=== PATIENT | female | born 1960 | race American Indian/Alaskan Native ===

== ENCOUNTER 2019-02-01 23:58 | Emergency (ER) | payer OTHER ==
[2019-02-02 00:10] VITALS: BP 133/91
--- NOTE | 2019-02-02 00:36 | XRay Report ---
PROCEDURE: XR CHEST 1V AP TECHNIQUE: Chest radiograph single view. HISTORY: Chest Pain COMPARISONS: None . FINDINGS: Heart: Normal. Mediastinum/Vessels: Normal. Lungs/Pleural space: Normal. Bony thorax: No acute osseous abnormality. Life support devices: None. IMPRESSION: No acute cardiopulmonary abnormality. This document is electronically signed by Karl Monique MD., February 02 2019 12:34:05 AM ET
[2019-02-02 01:21] LABS: Basophils # (Auto) 0.1 K/mm3 (0.0-0.1); Eosinophils # (Auto) 0.1 K/mm3 (0.0-0.4); Hematocrit 40.8 % (30.3-42.9); Hemoglobin 14.5 gm/dl (10.1-14.3); Lymphocytes # (Auto) 1.5 K/mm3 (1.2-5.4); Lymphocytes % (Auto) 25.1 % (13.4-35.0); Mean Corpuscular HGB Conc 36 % (30-34); Mean Corpuscular Volume 98 fl (79-97); Platelet Count 193 K/mm3 (140-440); Red Blood Count 4.16 M/mm3 (3.65-5.03); Red Cell Distribution Width 13.1 % (13.2-15.2)
[2019-02-02 02:05] LABS: BUN/Creatinine Ratio 15; Blood Urea Nitrogen 12 mg/dL (7-17); Calcium 8.8 mg/dL (8.4-10.2); Hemolysis Index 6
== END 2019-02-02 07:00 | disposition left against medical advice (07) ==
LOC: ED 23:58
DX: R07.89 Other chest pain (principal); Z53.21 Procedure and treatment not carried out due to patient leaving prior to being seen by health care provider
CPT/HCPCS: 36415; 71045; 80048; 84484; 85025; 93005; 93010

== ENCOUNTER 2019-05-02 19:57 | Emergency (ER) | payer OTHER ==
[2019-05-02 20:26] LABS: Basophils # (Auto) 0.1 K/mm3 (0.0-0.1); Basophils % (Auto) 1.7 % (0.0-1.8); Eosinophils # (Auto) 0.1 K/mm3 (0.0-0.4); Eosinophils % (Auto) 2.1 % (0.0-4.3); Hematocrit 33.5 % (30.3-42.9); Hemoglobin 11.9 gm/dl (10.1-14.3); Mean Corpuscular HGB Conc 35 % (30-34); Mean Corpuscular Volume 97 fl (79-97); Monocytes # (Auto) 0.6 K/mm3 (0.0-0.8); Platelet Count 179 K/mm3 (140-440); Red Blood Count 3.45 M/mm3 (3.65-5.03); Red Cell Distribution Width 14.2 % (13.2-15.2)
[2019-05-02 20:44] LABS: Alanine Aminotransferase 55 units/L (7-56); Albumin 3.4 g/dL (3.9-5); BUN/Creatinine Ratio 14; Blood Urea Nitrogen 11 mg/dL (7-17); Calcium 8.4 mg/dL (8.4-10.2); Hemolysis Index 61
[2019-05-02] MEDS ORDERED: ZOFRAN IV ONE (22:19)
[2019-05-02] MEDS ORDERED: NACL 0.9% 1000 ML 1,000 ML IV ONE (22:19)
[2019-05-02] MEDS ORDERED: PEPCID IV ONE (22:19)
--- NOTE | 2019-05-02 23:19 | Emergency Department Report ---
ED N/V/D HPI - General Chief complaint: Nausea/Vomiting/Diarrhea Stated complaint: LOSS OF APPETITE/EMESIS Time Seen by Provider: 05/02/19 22:00 Source: patient Mode of arrival: Ambulatory Limitations: No Limitations - History of Present Illness Initial comments: Patient is a 59-year-old -[place]ian female with a history of chronic anorexia with intermittent nausea and vomiting presents to the ED with acute exacerbation of her chronic nausea and vomiting episodes for the last 12 hours. Patient states that she has had 2 episodes of nausea and vomiting but has not eaten anything because of anorexia. Patient denies abdominal pain, chest pain, shortness of breath, dizziness, lightheadedness, cough, headache, dysuria, urinary frequency and urgency, hematuria, hematochezia, sore throat, fever and chills. MD complaint: nausea, vomiting -: Sudden, hour(s) (12) Description of Vomiting: watery, bilious Description of Diarrhea: other (None) Associated Abdominal Pain: No Location: diffuse Radiation: none Severity: moderate Pain Scale: 3 Quality: aching, dull Consistency: intermittent Improves with: none Worsens with: none Associated Symptoms: denies other symptoms, loss of appetite, malaise, nausea/vomiting. denies: myalgias, chest pain, cough, diaphoresis, fever/chills, headaches, rash, dysuria, shortness of breath, syncope, weakness - Related Data Previous Rx's Medication Instructions Recorded Last Taken Type HYDROcodone/APAP 5-325 [[place] 1 each PO Q6HR PRN #20 tablet 05/17/14 Unknown Rx 5/325] Ibuprofen [Motrin] 800 mg PO TID #60 tablet 05/17/14 Unknown Rx methylPREDNISolone [Medrol Dose 4 mg PO DAILY 6 Days tab 05/17/14 Unknown Rx Anthony] Diclofenac Dr [Onelia Quinn] 75 mg PO Q12H #60 tablet 06/24/15 Unknown Rx HYDROcodone/APAP 7.5-325 [[place] 1 each PO Q8HR PRN #30 tablet 06/24/15 Unknown Rx 7.5/325] Ondansetron [Zofran Odt] 4 mg PO Q6HR PRN #20 tab.rapdis 05/02/19 Unknown Rx Ranitidine HCl [Zantac] 150 mg PO Q12H #30 tablet 05/02/19 Unknown Rx Allergies Allergy/AdvReac Type Severity Reaction Status Date / Time No Known Allergies Allergy Verified 05/02/19 20:01 ED Review of Systems ROS: Stated complaint: LOSS OF APPETITE/EMESIS Other details as noted in HPI Constitutional: denies: chills, fever Eyes: denies: eye pain, eye discharge, vision change ENT: denies: ear pain, throat pain Respiratory: denies: cough, shortness of breath, wheezing Cardiovascular: denies: chest pain, palpitations Endocrine: no symptoms reported Gastrointestinal: nausea, vomiting. denies: abdominal pain, diarrhea Genitourinary: denies: urgency, dysuria, discharge Musculoskeletal: denies: back pain, joint swelling, arthralgia Skin: denies: rash, lesions Neurological: denies: headache, weakness, paresthesias Psychiatric: denies: anxiety, depression Hematological/Lymphatic: denies: easy bleeding, easy bruising ED Past Medical Hx - Past Medical History Hx Heart Attack/AMI: Yes Hx Arthritis: Yes (osteo, chronic back pain) Hx Psychiatric Treatment: Yes (depression) Additional medical history: [place] 2008, [place] 2017 - Surgical History Additional Surgical History: Hysto, tumor removal off left shoulder. tosillectomy - Social History Smoking Status: Current Every Day Smoker Substance Use Type: Alcohol, Marijuana - Medications Home Medications: Home Medications Medication Instructions Recorded Confirmed Last Taken Type HYDROcodone/APAP 5-325 [[place] 1 each PO Q6HR PRN #20 tablet 05/17/14 Unknown Rx 5/325] Ibuprofen [Motrin] 800 mg PO TID #60 tablet 05/17/14 Unknown Rx methylPREDNISolone [Medrol Dose 4 mg PO DAILY 6 Days tab 05/17/14 Unknown Rx Anthony] Diclofenac Dr [Oneila Dr] 75 mg PO Q12H #60 tablet 06/24/15 Unknown Rx HYDROcodone/APAP 7.5-325 [[place] 1 each PO Q8HR PRN #30 tablet 06/24/15 Unknown Rx 7.5/325] Ondansetron [Zofran Odt] 4 mg PO Q6HR PRN #20 tab.rapdis 05/02/19 Unknown Rx Ranitidine HCl [Zantac] 150 mg PO Q12H #30 tablet 05/02/19 Unknown Rx ED Physical Exam - General Limitations: No Limitations General appearance: alert, in no apparent distress - Head Head exam: Present: atraumatic, normocephalic, normal inspection - Eye Eye exam: Present: normal appearance, PERRL, EOMI. Absent: scleral icterus, conjunctival injection, nystagmus Pupils: Present: normal accommodation - ENT ENT exam: Present: normal exam, normal orophraynx, mucous membranes moist, TM's normal bilaterally, normal external ear exam - Neck Neck exam: Present: normal inspection, full ROM. Absent: tenderness, lymphadenopathy - Respiratory Respiratory exam: Present: normal lung sounds bilaterally. Absent: respiratory distress, wheezes, chest wall tenderness, accessory muscle use, prolonged expiratory - Cardiovascular Cardiovascular Exam: Present: normal rhythm, tachycardia. Absent: systolic murmur, diastolic murmur, rubs, gallop - GI/Abdominal GI/Abdominal exam: Present: soft, normal bowel sounds. Absent: tenderness, guarding, rebound, hyperactive bowel sounds, hypoactive bowel sounds, organomegaly - Rectal Rectal exam: Present: deferred - Extremities Exam Extremities exam: Present: normal inspection, full ROM, normal capillary refill - Back Exam Back exam: Present: normal inspection, full ROM. Absent: tenderness, CVA tenderness (R), CVA tenderness (L), muscle spasm, paraspinal tenderness - Neurological Exam Neurological exam: Present: alert, oriented X3, CN II-XII intact, normal gait, reflexes normal - Psychiatric Psychiatric exam: Present: normal affect, normal mood, anxious - Skin Skin exam: Present: warm, dry, intact, normal color. Absent: rash ED Course Vital Signs 05/02/19 20:06 Temperature 98.2 F Pulse Rate 107 H Respiratory 18 Rate Blood Pressure 132/80 O2 Sat by Pulse 98 Oximetry - Reevaluation(s) Reevaluation #1: 05/02/19 23:18 The patient is alert and oriented 3, tachycardic in triage but in no acute distress. Lab test results are reviewed and are unremarkable except for a slight elevation of AST levels. Patient was treated for nausea and vomiting in the ED but declined normal saline 1 L IV bolus. Patient requested to be discharged home on antiemetics and was advised to follow-up with her primary care physician in 3-5 days for reevaluation or return to the ED immediately if symptoms get worse. ED Medical Decision Making - Lab Data Result diagrams: 05/02/19 20:13 05/02/19 20:13 - Medical Decision Making The patient is alert and oriented 3, tachycardic in triage but in no acute dist ress. Lab test results are reviewed and are unremarkable except for a slight elevation of AST levels. Patient was treated for nausea and vomiting in the ED but declined normal saline 1 L IV bolus. Patient requested to be discharged home on antiemetics and was advised to follow-up with her primary care physician in 3-5 days for reevaluation or return to the ED immediately if symptoms get worse. The tachycardia improved on reevaluation after treatment in the ED. - Differential Diagnosis Nausea and vomiting; Viral gastroenteritis; Cyclic Vomiting syndrome Critical care attestation.: If time is entered above; I have spent that time in minutes in the direct care of this critically ill patient, excluding procedure time. ED Disposition Clinical Impression: Nausea and vomiting in adult patient Disposition: - TO HOME OR SELFCARE Is pt being admited?: No Does the pt Need Aspirin: No Condition: Stable Instructions: Acute Nausea and Vomiting (ED) Additional Instructions: Take medications with food, drink plenty of fluids and follow-up with your primary care physician as advised. Return to the ED immediately if symptoms get worse. Prescriptions: Ranitidine HCl [Zantac] 150 mg PO Q12H #30 tablet Ondansetron [Zofran Odt] 4 mg PO Q6HR PRN #20 tab.rapdis PRN Reason: Nausea Referrals: [facility] [Outside] - 3-5 Days Time of Disposition: 23:21 Print Language: NICARAGUAN
[2019-05-03 00:14] VITALS: BP 161/98
== END 2019-05-03 00:14 | disposition home or self-care (01) ==
LOC: ED 19:57
DX: R11.2 Nausea with vomiting, unspecified (principal); I25.2 Old myocardial infarction; M19.90 Unspecified osteoarthritis, unspecified site; F32.9 Major depressive disorder, single episode, unspecified; F17.200 Nicotine dependence, unspecified, uncomplicated; F12.10 Cannabis abuse, uncomplicated; Z79.899 Other long term (current) drug therapy; Z90.710 Acquired absence of both cervix and uterus; Z90.89 Acquired absence of other organs
CPT/HCPCS: 36415; 80053; 83690; 85025; 99283; J2405; J7030

== ENCOUNTER 2019-08-03 00:05 | Emergency (ER) | payer SELFPAY ==
[2019-08-03] MEDS ORDERED: ASPIRIN 325 MG TAB PO ONE (00:11)
--- NOTE | 2019-08-03 00:47 | XRay Report ---
CHEST 1 VIEW 08/03/2019 12:34 AM INDICATION / CLINICAL INFORMATION: Chest Pain. Palpitations. Dizziness. COMPARISON: One view of the chest from 02/02/2019. FINDINGS: SUPPORT DEVICES: None. HEART / MEDIASTINUM: Normal cardiac size with mild aortic atherosclerosis. LUNGS / PLEURA: No significant pulmonary or pleural abnormality. No pneumothorax. ADDITIONAL FINDINGS: No significant additional findings. IMPRESSION: No acute abnormality of the chest. Signer Name: Jay King MD Signed: 08/03/2019 12:43 AM Workstation Name: [id number]
[2019-08-03 01:03] LABS: Basophils # (Auto) 0.1 K/mm3 (0.0-0.1); Basophils % (Auto) 1.7 % (0.0-1.8); Eosinophils # (Auto) 0.1 K/mm3 (0.0-0.4); Eosinophils % (Auto) 1.2 % (0.0-4.3); Hematocrit 39.4 % (30.3-42.9); Hemoglobin 13.7 gm/dl (10.1-14.3); Mean Corpuscular HGB Conc 35 % (30-34); Mean Corpuscular Volume 102 fl (79-97); Monocytes # (Auto) 0.7 K/mm3 (0.0-0.8); Monocytes % (Auto) 12.2 % (0.0-7.3); Platelet Count 172 K/mm3 (140-440); Red Blood Count 3.88 M/mm3 (3.65-5.03); Red Cell Distribution Width 13.8 % (13.2-15.2)
--- NOTE | 2019-08-03 01:11 | Emergency Department Report ---
ED Chest Pain HPI - General Chief Complaint: Chest Pain Stated Complaint: CHEST PAIN Time Seen by Provider: 08/03/19 01:01 Source: patient Mode of arrival: Ambulatory Limitations: No Limitations - History of Present Illness Initial Comments: Patient is 59 years old female with history of hypertension, noncompliant with her medication. Patient presented to the ER complaining of substernal chest pain started 3 days ago, on and off with no radiation. Patient denied any shortness of breath, fever or chills. No cough. MD Complaint: chest pain -: days(s) (2) Onset: during rest Pain Location: substernal Severity: moderate Quality: heaviness Consistency: intermittent - Related Data Previous Rx's Medication Instructions Recorded Last Taken Type HYDROcodone/APAP 5-325 [[place] 1 each PO Q6HR PRN #20 tablet 05/17/14 Unknown Rx 5/325] Ibuprofen [Motrin] 800 mg PO TID #60 tablet 05/17/14 Unknown Rx methylPREDNISolone [Medrol Dose 4 mg PO DAILY 6 Days tab 05/17/14 Unknown Rx Anthony] Diclofenac Dr [Voltaren Dr] 75 mg PO Q12H #60 tablet 06/24/15 Unknown Rx HYDROcodone/APAP 7.5-325 [[place] 1 each PO Q8HR PRN #30 tablet 06/24/15 Unknown Rx 7.5/325] Ondansetron [Zofran Odt] 4 mg PO Q6HR PRN #20 tab.rapdis 05/02/19 Unknown Rx raNITIdine HCl [Zantac] 150 mg PO Q12H #30 tablet 05/02/19 Unknown Rx Allergies Allergy/AdvReac Type Severity Reaction Status Date / Time No Known Allergies Allergy Verified 05/02/19 20:01 Heart Score - HEART Score History: Slightly suspicious EKG: Non-specific Age: 45-65 Risk factors: 1-2 risk factors Troponin: < normal limit HEART Score: 3 - Critical Actions Critical Actions: 0-3 pts:0.9-1.7%risk of adverse cardiac event.Candidate for discharge ED Review of Systems ROS: Stated complaint: CHEST PAIN Other details as noted in HPI Comment: All other systems reviewed and negative Constitutional: denies: chills, fever Respiratory: denies: cough Cardiovascular: chest pain. denies: palpitations Gastrointestinal: denies: abdominal pain, nausea, vomiting Musculoskeletal: denies: back pain Neurological: denies: headache, weakness, numbness, paresthesias, confusion, vertigo ED Past Medical Hx - Past Medical History Previous Medical History?: Yes Hx Heart Attack/AMI: Yes Hx Arthritis: Yes (osteo, chronic back pain) Hx Psychiatric Treatment: Yes (depression) Additional medical history: [place] 2008, 2017 - Surgical History Past Surgical History?: Yes Additional Surgical History: Hysto, tumor removal off left shoulder. tosillectomy. - Social History Smoking Status: Current Every Day Smoker Substance Use Type: Alcohol - Medications Home Medications: Home Medications Medication Instructions Recorded Confirmed Last Taken Type HYDROcodone/APAP 5-325 [[place] 1 each PO Q6HR PRN #20 tablet 05/17/14 Unknown Rx 5/325] Ibuprofen [Motrin] 800 mg PO TID #60 tablet 05/17/14 Unknown Rx methylPREDNISolone [Medrol Dose 4 mg PO DAILY 6 Days tab 05/17/14 Unknown Rx Anthony] Diclofenac Dr [Voltaren Dr] 75 mg PO Q12H #60 tablet 06/24/15 Unknown Rx HYDROcodone/APAP 7.5-325 [[place] 1 each PO Q8HR PRN #30 tablet 06/24/15 Unknown Rx 7.5/325] Ondansetron [Zofran Odt] 4 mg PO Q6HR PRN #20 tab.rapdis 05/02/19 Unknown Rx raNITIdine HCl [Zantac] 150 mg PO Q12H #30 tablet 05/02/19 Unknown Rx ED Physical Exam - General Limitations: No Limitations General appearance: alert, in no apparent distress - Head Head exam: Present: atraumatic, normocephalic, normal inspection - Eye Eye exam: Present: normal appearance, PERRL - ENT ENT exam: Present: normal exam, normal orophraynx, mucous membranes moist - Neck Neck exam: Present: normal inspection, full ROM. Absent: tenderness, meningismus, lymphadenopathy, thyromegaly - Respiratory Respiratory exam: Present: normal lung sounds bilaterally - Cardiovascular Cardiovascular Exam: Present: regular rate, normal rhythm, normal heart sounds - GI/Abdominal GI/Abdominal exam: Present: soft, normal bowel sounds. Absent: distended, tenderness, guarding, rebound, rigid, organomegaly, mass, bruit, pulsatile mass, hernia - Extremities Exam Extremities exam: Present: normal inspection, full ROM, normal capillary refill. Absent: tenderness, pedal edema, joint swelling, calf tenderness - Neurological Exam Neurological exam: Present: alert, oriented X3, CN II-XII intact, normal gait, reflexes normal. Absent: abnormal gait, motor sensory deficit - Psychiatric Psychiatric exam: Present: normal mood - Skin Skin exam: Present: warm, intact, normal color ED Course Vital Signs 08/03/19 01:54 Pulse Rate 88 Respiratory 18 Rate Blood Pressure 137/93 [Right] O2 Sat by Pulse 100 Oximetry ED Medical Decision Making - Lab Data Result diagrams: 08/03/19 00:19 08/03/19 00:19 - EKG Data -: EKG Interpreted by Ga EKG shows normal: sinus rhythm Rate: normal - EKG Data Interpretation: no acute changes - Radiology Data Radiology results: report reviewed - Medical Decision Making Patient is 59 years old female with history of hypertension, noncompliant with her medication. Patient presented to the ER complaining of substernal chest pain started 3 days ago, on and off with no radiation. Patient denied any shortness of breath, fever or chills. No cough. EKG is unremarkable. Chest x-ray is negative for acute finding. Labs reviewed and is unremarkable including a negative troponin. Patient stated that her symptoms completely resolved. Patient advised to follow-up with her primary care physician in the next 2-3 days and to attend to the ER if symptoms are not improved. Patient informed that she will need a outpatient cardiac workup including stress test. Patient also counseled about a blood pressure medication and compliance with her medication. Critical care attestation.: If time is entered above; I have spent that time in minutes in the direct care of this critically ill patient, excluding procedure time. ED Disposition Clinical Impression: Chest pain, Hypertension Disposition: - TO HOME OR SELFCARE Is pt being admited?: No Condition: Stable Instructions: Chest Pain (ED), Hypertension (ED) Referrals: [facility] [Provider Group] - 3-5 Days
[2019-08-03 01:16] LABS: BUN/Creatinine Ratio 20; Blood Urea Nitrogen 14 mg/dL (7-17); Calcium 8.2 mg/dL (8.4-10.2); Hemolysis Index 62
[2019-08-03 02:43] VITALS: BP 132/83
== END 2019-08-03 02:40 | disposition home or self-care (01) ==
LOC: ED 00:05
DX: R07.89 Other chest pain (principal); I10 Essential (primary) hypertension
CPT/HCPCS: 36415; 71045; 80048; 84484; 85025; 93005; 93010

== ENCOUNTER 2020-12-03 16:42 | Emergency (ER) | payer SELFPAY ==
--- NOTE | 2020-12-03 17:23 | Event Note ---
ED Screening Note ED Screening Note: COVID 19 + on 11/11/2020 states she has SOB, headache, no taste, body aches, lower back pain, abd pain no n/v/d no fever no cough no CP PMHx HTN, SVT has been taking emergen-c, airborne and tylenol This initial assessment/diagnostic orders/clinical plan/treatment(s) is/are subject to change based on patients health status, clinical progression and re- assessment by fellow clinical providers in the ED. Further treatment and workup at subsequent clinical providers discretion. Patient/guardian urged not to elope from the ED as their condition may be serious if not clinically assessed and managed. Initial orders include: labs, UA, CXR
--- NOTE | 2020-12-03 17:50 | XRay Report ---
CHEST 2 VIEWS INDICATION / CLINICAL INFORMATION: SOB. Dyspnea. FINDINGS: SUPPORT DEVICES: None. HEART / MEDIASTINUM: No significant abnormality. LUNGS / PLEURA: No significant pulmonary or pleural abnormality. No pneumothorax. ADDITIONAL FINDINGS: No significant additional findings. IMPRESSION: 1. No acute findings. Signer Name: Rene Guzman MD Signed: 12/03/2020 5:45 PM Workstation Name: [id number]
[2020-12-03 18:11] LABS: Basophils # (Auto) 0.1 K/mm3 (0.0-0.1); Eosinophils # (Auto) 0.1 K/mm3 (0.0-0.4); Lymphocytes # (Auto) 1.6 K/mm3 (1.2-5.4); Lymphocytes % (Auto) 27.4 % (13.4-35.0); Mean Corpuscular HGB Conc 34 % (30-34); Mean Corpuscular Volume 102 fl (79-97); Monocytes # (Auto) 0.7 K/mm3 (0.0-0.8); Monocytes % (Auto) 11.9 % (0.0-7.3); Platelet Count 153 K/mm3 (140-440); Red Blood Count 3.43 M/mm3 (3.65-5.03); Red Cell Distribution Width 14.2 % (13.2-15.2)
[2020-12-03 18:24] LABS: Alanine Aminotransferase 46 units/L (7-56); Albumin 3.3 g/dL (3.9-5); Blood Urea Nitrogen 10 mg/dL (7-17); Calcium 8.1 mg/dL (8.4-10.2); Hemolysis Index 21
[2020-12-03 18:30] LABS: BUN/Creatinine Ratio 14
[2020-12-03] MEDS ORDERED: SODIUM CHLORIDE 0.9% 1000 ML 1,000 ML IV ONE (18:36)
--- NOTE | 2020-12-03 18:41 | Emergency Department Report ---
ED Abdominal Pain HPI - General Chief Complaint: Abdominal Pain Stated Complaint: COVID/HEADACHE/BACK PAIN Time Seen by Provider: 12/03/20 17:21 Source: patient Mode of arrival: Ambulatory Limitations: No Limitations - History of Present Illness Initial Comments: Patient is 60 years old female with history of hypertension. Patient presented to the ER complaining of generalized weakness, nausea, vomiting and diarrhea. Patient stated that she was diagnosed with COVID-19 in mid October but since then she has not been doing well. Patient also stated that she has been having right upper quadrant pain and it feels like there is a mass in her abdomen. She stated that this is started before the COVID-19 infection. Patient stated that she lost a lot of weight recently. Patient denied any chest pain or shortness of breath. No fever or chills. MD Complaint: abdominal pain -: days(s) Location: RUQ Radiation: none Migration to: no migration Severity: moderate Severity scale (0 -10): 5 Quality: fullness Consistency: intermittent - Related Data Previous Rx's Medication Instructions Recorded Last Taken Type HYDROcodone/APAP 5-325 [[place] 1 each PO Q6HR PRN #20 tablet 05/17/14 Unknown Rx 5/325] Ibuprofen [Motrin] 800 mg PO TID #60 tablet 05/17/14 Unknown Rx methylPREDNISolone [Medrol Dose 4 mg PO DAILY 6 Days tab 05/17/14 Unknown Rx Anthony] Diclofenac Dr [Voltarebaron Dr] 75 mg PO Q12H #60 tablet 06/24/15 Unknown Rx HYDROcodone/APAP 7.5-325 [[place] 1 each PO Q8HR PRN #30 tablet 06/24/15 Unknown Rx 7.5/325] Ondansetron [Zofran Odt] 4 mg PO Q6HR PRN #20 tab.rapdis 05/02/19 Unknown Rx raNITIdine HCl [Zantac] 150 mg PO Q12H #30 tablet 05/02/19 Unknown Rx amLODIPine [Norvasc] 5 mg PO DAILY #30 tab 08/03/19 Unknown Rx labetaloL [Labetalol 100mg TAB] 100 mg PO BID #60 tablet 04/26/20 Unknown Rx Ondansetron [Zofran Odt] 4 mg PO Q8HR PRN #14 tab.rapdis 12/03/20 Unknown Rx Allergies Allergy/AdvReac Type Severity Reaction Status Date / Time No Known Allergies Allergy Verified 05/02/19 20:01 ED Review of Systems ROS: Stated complaint: COVID/HEADACHE/BACK PAIN Other details as noted in HPI Comment: All other systems reviewed and negative Constitutional: denies: chills, fever Respiratory: denies: cough, shortness of breath, SOB with exertion Cardiovascular: denies: chest pain Gastrointestinal: abdominal pain, nausea, vomiting, diarrhea Musculoskeletal: denies: back pain Neurological: denies: headache, weakness, numbness, paresthesias, confusion, abnormal gait ED Past Medical Hx - Past Medical History Hx Heart Attack/AMI: Yes Hx Arthritis: Yes (osteo, chronic back pain) Hx Psychiatric Treatment: Yes (depression) Additional medical history: [place] 2008, [place] 2017 - Surgical History Past Surgical History?: Yes Additional Surgical History: Hysto, tumor removal off left shoulder. tosillectomy. - Social History Smoking Status: Never Smoker Substance Use Type: None - Medications Home Medications: Home Medications Medication Instructions Recorded Confirmed Last Taken Type HYDROcodone/APAP 5-325 [[place] 1 each PO Q6HR PRN #20 tablet 05/17/14 Unknown Rx 5/325] Ibuprofen [Motrin] 800 mg PO TID #60 tablet 05/17/14 Unknown Rx methylPREDNISolone [Medrol Dose 4 mg PO DAILY 6 Days tab 05/17/14 Unknown Rx Anthony] Diclofenac Dr [Voltaren Dr] 75 mg PO Q12H #60 tablet 06/24/15 Unknown Rx HYDROcodone/APAP 7.5-325 [[place] 1 each PO Q8HR PRN #30 tablet 06/24/15 Unknown Rx 7.5/325] Ondansetron [Zofran Odt] 4 mg PO Q6HR PRN #20 tab.rapdis 05/02/19 Unknown Rx raNITIdine HCl [Zantac] 150 mg PO Q12H #30 tablet 05/02/19 Unknown Rx amLODIPine [Norvasc] 5 mg PO DAILY #30 tab 08/03/19 Unknown Rx labetaloL [Labetalol 100mg TAB] 100 mg PO BID #60 tablet 04/26/20 Unknown Rx Ondansetron [Zofran Odt] 4 mg PO Q8HR PRN #14 tab.rapdis 12/03/20 Unknown Rx ED Physical Exam - General Limitations: No Limitations General appearance: alert, in no apparent distress - Head Head exam: Present: atraumatic, normocephalic, normal inspection - Eye Eye exam: Present: normal appearance, PERRL - ENT ENT exam: Present: mucous membranes dry - Neck Neck exam: Present: normal inspection, full ROM. Absent: tenderness, meningismus - Respiratory Respiratory exam: Present: normal lung sounds bilaterally - Cardiovascular Cardiovascular Exam: Present: regular rate, normal rhythm, normal heart sounds - GI/Abdominal GI/Abdominal exam: Present: soft, normal bowel sounds. Absent: distended, tenderness, guarding, rebound, rigid, organomegaly, mass, bruit, pulsatile mass, hernia - Extremities Exam Extremities exam: Present: normal inspection, full ROM, normal capillary refill. Absent: pedal edema, calf tenderness - Back Exam Back exam: Present: normal inspection, full ROM. Absent: CVA tenderness (R), C VA tenderness (L) - Neurological Exam Neurological exam: Present: alert, oriented X3, CN II-XII intact - Psychiatric Psychiatric exam: Present: normal mood - Skin Skin exam: Present: warm, intact, normal color ED Course Vital Signs 12/03/20 17:12 Temperature 98.8 F Pulse Rate 81 Respiratory 18 Rate Blood Pressure 141/87 O2 Sat by Pulse 100 Oximetry ED Medical Decision Making - Lab Data Result diagrams: 12/03/20 17:51 12/03/20 17:51 - Radiology Data Radiology results: report reviewed - Medical Decision Making Patient is 60 years old female with history of hypertension. Patient presented to the ER complaining of generalized weakness, nausea, vomiting and diarrhea. Patient stated that she was diagnosed with COVID-19 in mid October but since then she has not been doing well. Patient also stated that she has been having right upper quadrant pain and it feels like there is a mass in her abdomen. She stated that this is started before the COVID-19 infection. Patient stated that she lost a lot of weight recently. Patient denied any chest pain or shortness of breath. No fever or chills. Patient received normal saline. Patient stated that she is feeling better. Laura bs reviewed and is unremarkable except for slightly elevated AST. CT abdomen and pelvis showed hepatomegaly with no focal mass. Patient given prescription for Zofran and advised to follow-up with gastroenterology. Patient given [facility] to follow-up with in the next 2 to 3 days and to return to the ER she develop any new symptoms. Critical care attestation.: If time is entered above; I have spent that time in minutes in the direct care of this critically ill patient, excluding procedure time. ED Disposition Clinical Impression: Abdominal pain, Generalized weakness, Hepatomegaly Disposition: DC- TO HOME OR SELFCARE Is pt being admited?: No Condition: Stable Instructions: Fatigue, Hepatomegaly, [id number], Alcoholic Hepatitis, Abdominal Pain (ED) Prescriptions: Ondansetron [Zofran Odt] 4 mg PO Q8HR PRN #14 tab.rapdis PRN Reason: Nausea And Vomiting Referrals: PRIMARY CARE, [Primary Care Provider] - 3-5 Days [facility] [Provider Group] - 3-5 Days Forms: Work/School Release Form(ED)
--- NOTE | 2020-12-03 19:53 | Cat Scan Report ---
CT ABDOMEN AND PELVIS WITH CONTRAST HISTORY: Abdominal pain COMPARISON: None TECHNIQUE: Routine abdominal and pelvic CT exam performed following intravenous contrast administrat ion.. All CT scans at this location are performed using CT dose reduction for ALARA by means of autom ated exposure control. FINDINGS: CT ABDOMEN: Lung Bases: No significant abnormality. Liver: The liver is significantly enlarged, measuring 22 cm in length. There is heterogeneous attenua tion of the liver without focal mass or biliary dilation. Biliary: No significant abnormality. Spleen: No significant abnormality. Unenlarged. Pancreas: No significant abnormality. Adrenals: No significant abnormality. Kidneys: No significant abnormality. Lymphatics: No lymphadenopathy. Vasculature: Atherosclerotic but nonaneurysmal abdominal aorta. Bowel/Peritoneum: No significant abnormality. No free air. No free fluid. Normal appendix. CT PELVIC: : No significant abnormality. Lymphatics: No lymphadenopathy. Osseous Structures: No aggressive appearing osseous lesions. Additional Findings: None IMPRESSION: 1. Significant hepatomegaly with heterogeneous attenuation in the liver. Findings could indicate hepa titis. Recommend correlation with liver function tests. Signer Name: Rl Joseph MD Signed: 12/03/2020 7:49 PM Workstation Name: [id number]
[2020-12-03 20:48] VITALS: BP 138/68
== END 2020-12-03 20:50 | disposition home or self-care (01) ==
LOC: ED 16:42
DX: R16.0 Hepatomegaly, not elsewhere classified (principal); R53.1 Weakness; R10.9 Unspecified abdominal pain; I25.2 Old myocardial infarction; M19.90 Unspecified osteoarthritis, unspecified site; F32.9 Major depressive disorder, single episode, unspecified; Z90.710 Acquired absence of both cervix and uterus; Z79.899 Other long term (current) drug therapy; Z98.890 Other specified postprocedural states
CPT/HCPCS: 36415; 71046; 74177; 80053; 85025; 96360; 99284; J7030; Q9967

== ENCOUNTER 2021-05-02 09:51 | Emergency (ER) | payer SELFPAY ==
--- NOTE | 2021-05-02 11:04 | Emergency Department Report ---
Blank Doc - Documentation Documentation: 61-year-old female that presents with chest pain and shortness of breath. 1- This is a initial triage assessment/medical screening only. Full assessment and work-up will be completed once the patient is in proper hospital gown, ED bed and in a private room setting. This initial assessment/diagnostic orders/clinical plan/ treatment(s) is/are subject to change based on pt's health status, clinical progression and re-assessment by fellow clinical providers in the ED. Further treatment and workup at subsequent clinical providers discretion. Patient/guardians urged not to elope from ED as their condition may be serious if not clinically assessed and managed. 2-cardiac work-up
--- NOTE | 2021-05-02 11:25 | XRay Report ---
CHEST 2 VIEWS INDICATION: Chest Pain. COMPARISON: 12/03/2020 FINDINGS: Support devices: None. Heart: Within normal limits. Lungs/Pleura: No acute air space or interstitial disease. No significant pleural effusion. IMPRESSION: No acute findings. Signer Name: Ollie Carrion MD Signed: 05/02/2021 11:20 AM Workstation Name: [id number]
--- NOTE | 2021-05-02 11:56 | Emergency Department Report ---
ED Chest Pain HPI - General Chief Complaint: Chest Pain Stated Complaint: CHEST PAIN Time Seen by Provider: 05/02/21 10:29 Source: patient Mode of arrival: Ambulatory Limitations: No Limitations - History of Present Illness Initial Comments: This is a 61-year-old -[place] female presents to the emergency department with a complaint of palpitations and some generalized chest pressure that has been going on since 7 AM yesterday. The symptoms are intermittent and seem to worsen while she is at work. The patient has a history of osteoarthritis, coronary artery disease with previous DC but no coronary stents, hypertension and paroxysmal SVT. She is a tobacco smoker. Patient just recently moved here from [place] and therefore says that she does not have a primary care physician or smt machine operator. She has not taken anything for symptoms prior to presentation. No known aggravating or alleviating factors. She denies any fever, cough, shortness of breath, lower extremity swelling, back pain, nausea, vomiting or diaphoresis. - Related Data Previous Rx's Medication Instructions Recorded Last Taken Type HYDROcodone/APAP 5-325 [Riley 1 each PO Q6HR PRN #20 tablet 05/17/14 Unknown Rx 5/325] Ibuprofen [Motrin] 800 mg PO TID #60 tablet 05/17/14 Unknown Rx methylPREDNISolone [Medrol Dose 4 mg PO DAILY 6 Days tab 05/17/14 Unknown Rx Anthony] Diclofenac Dr [Onelia Dr] 75 mg PO Q12H #60 tablet 06/24/15 Unknown Rx HYDROcodone/APAP 7.5-325 [Riley 1 each PO Q8HR PRN #30 tablet 06/24/15 Unknown Rx 7.5/325] Ondansetron [Zofran Odt] 4 mg PO Q6HR PRN #20 tab.rapdis 05/02/19 Unknown Rx raNITIdine HCl [Zantac] 150 mg PO Q12H #30 tablet 05/02/19 Unknown Rx amLODIPine [Norvasc] 5 mg PO DAILY #30 tab 08/03/19 Unknown Rx labetaloL [Labetalol 100mg TAB] 100 mg PO BID #60 tablet 04/26/20 Unknown Rx Ondansetron [Zofran Odt] 4 mg PO Q8HR PRN #14 tab.rapdis 12/03/20 Unknown Rx Allergies Allergy/AdvReac Type Severity Reaction Status Date / Time No Known Allergies Allergy Verified 05/02/19 20:01 Heart Score - HEART Score History: Slightly suspicious EKG: Normal Age: 45-65 Risk factors: > 3 risk factors or hx of atherosclerotic disease Troponin: < normal limit HEART Score: 3 - EKG Read Time Time EKG Completed: 10:03 EKG Read Time: 10:07 - Critical Actions Critical Actions: 0-3 pts:0.9-1.7%risk of adverse cardiac event.Candidate for discharge ED Review of Systems ROS: Stated complaint: CHEST PAIN Other details as noted in HPI Comment: All other systems reviewed and negative Constitutional: denies: chills, fever Eyes: denies: eye pain, vision change ENT: denies: ear pain, throat pain Respiratory: denies: cough, shortness of breath Cardiovascular: chest pain, palpitations Gastrointestinal: denies: abdominal pain, vomiting Genitourinary: denies: dysuria, discharge Musculoskeletal: denies: back pain, arthralgia Skin: denies: rash, lesions Neurological: denies: headache, weakness ED Past Medical Hx - Past Medical History Previous Medical History?: Yes Hx Heart Attack/AMI: Yes Hx Arthritis: Yes (osteo, chronic back pain) Hx Psychiatric Treatment: Yes (depression) Additional medical history: DC 2008, DC 2017 - Surgical History Past Surgical History?: Yes Additional Surgical History: Hysto, tumor removal off left shoulder. tosillectomy. - Social History Smoking Status: Never Smoker Substance Use Type: None - Medications Home Medications: Home Medications Medication Instructions Recorded Confirmed Last Taken Type HYDROcodone/APAP 5-325 [Riley 1 each PO Q6HR PRN #20 tablet 05/17/14 Unknown Rx 5/325] Ibuprofen [Motrin] 800 mg PO TID #60 tablet 05/17/14 Unknown Rx methylPREDNISolone [Medrol Dose 4 mg PO DAILY 6 Days tab 05/17/14 Unknown Rx Anthony] Diclofenac Dr [Voltaren Dr] 75 mg PO Q12H #60 tablet 06/24/15 Unknown Rx HYDROcodone/APAP 7.5-325 [Riley 1 each PO Q8HR PRN #30 tablet 06/24/15 Unknown Rx 7.5/325] Ondansetron [Zofran Odt] 4 mg PO Q6HR PRN #20 tab.rapdis 05/02/19 Unknown Rx raNITIdine HCl [Zantac] 150 mg PO Q12H #30 tablet 05/02/19 Unknown Rx amLODIPine [Norvasc] 5 mg PO DAILY #30 tab 08/03/19 Unknown Rx labetaloL [Labetalol 100mg TAB] 100 mg PO BID #60 tablet 04/26/20 Unknown Rx Ondansetron [Zofran Odt] 4 mg PO Q8HR PRN #14 tab.rapdis 12/03/20 Unknown Rx ED Physical Exam - General Limitations: No Limitations - Other Other exam information: GENERAL: The patient is well-developed well-nourished. HENT: Normocephalic. Atraumatic. Patient has moist mucous membranes. EYES: Extraocular motions are intact. NECK: Supple. Trachea is midline. CHEST/LUNGS: Clear to auscultation. There is no respiratory distress noted. HEART/CARDIOVASCULAR: Regular. There is no tachycardia. There is no murmur. ABDOMEN: Abdomen is soft, nontender. Patient has normal bowel sounds. There is no abdominal distention. SKIN: Skin is warm and dry. NEURO: The patient is awake, alert, and oriented. The patient is cooperative. The patient has no focal neurologic deficits. Normal speech. MUSCULOSKELETAL: There is no tenderness or deformity. There is no limitation range of motion. ED Course Vital Signs 05/02/21 05/02/21 05/02/21 09:58 10:00 12:17 Temperature 98.3 F Pulse Rate 103 H 75 Respiratory 18 19 Rate Blood Pressure 144/93 Blood Pressure 126/87 [Right] O2 Sat by Pulse 100 99 Oximetry 05/02/21 05/02/21 12:21 15:12 Temperature Pulse Rate 89 Respiratory 19 19 Rate Blood Pressure Blood Pressure 128/81 [Right] O2 Sat by Pulse 100 Oximetry MICHAEL score - Michael Score Age > 65: (0) No Aspirin use within the Past 7 Days: (0) No 3 or more CAD Risk Factors: (1) Yes 2 or more Angina events in past 24 hrs: (1) Yes Known CAD with more than 50% Stenosis: (0) No Elevated Cardiac Markers: (0) No ST Deviation Greater than 0.5mm: (0) No MICHAEL Score: 2 ED Medical Decision Making - Lab Data Result diagrams: 05/02/21 12:01 05/02/21 12:01 Lab Results 05/02/21 05/02/21 05/02/21 Range/Units 12:01 12:01 12:01 WBC 6.2 (4.5-11.0) K/mm3 RBC 3.98 (3.65-5.03) M/mm3 Hgb 13.5 (10.1-14.3) gm/dl Hct 39.5 (30.3-42.9) % MCV 99 H (79-97) fl MCH 34 H (28-32) pg MCHC 34 (30-34) % RDW 13.9 (13.2-15.2) % Plt Count 135 L (140-440) K/mm3 Lymph % (Auto) 30.4 (13.4-35.0) % [place] % (Auto) 11.7 H (0.0-7.3) % Eos % (Auto) 0.8 (0.0-4.3) % Baso % (Auto) 0.6 (0.0-1.8) % Lymph # (Auto) 1.9 (1.2-5.4) K/mm3 [place] # (Auto) 0.7 (0.0-0.8) K/mm3 Eos # (Auto) 0.1 (0.0-0.4) K/mm3 Baso # (Auto) 0.0 (0.0-0.1) K/mm3 Seg Neutrophils % 56.5 (40.0-70.0) % Seg Neutrophils # 3.5 (1.8-7.7) K/mm3 PT 15.4 H (12.2-14.9) Sec. INR 1.16 H (0.87-1.13) APTT 38.3 H (24.2-36.6) Sec. D-Dimer < 135.00 (0-234) ng/mlDDU Sodium 134 L (137-145) mmol/L Potassium 3.8 (3.6-5.0) mmol/L Chloride 98.6 (98-107) mmol/L Carbon Dioxide 20 L (22-30) mmol/L Anion Gap 19 mmol/L BUN 13 (7-17) mg/dL Creatinine 0.6 (0.6-1.2) mg/dL Estimated GFR > 60 ml/min BUN/Creatinine Ratio 22 % Glucose 70 (65-100) mg/dL Calcium 8.7 (8.4-10.2) mg/dL Total Bilirubin 0.80 (0.1-1.2) mg/dL AST 97 H (5-40) units/L ALT 46 (7-56) units/L Alkaline Phosphatase 123 (35-129) units/L Troponin T < 0.010 (0.00-0.029) ng/mL Total Protein 7.6 (6.3-8.2) g/dL Albumin 4.1 (3.9-5) g/dL Albumin/Globulin Ratio 1.2 % Urine Color (Yellow) Urine Turbidity (Clear) Urine pH (5.0-7.0) Ur Specific [place] (1.003-1.030) Urine Protein (Negative) mg/dL Urine Glucose (UA) (Negative) mg/dL Urine Ketones (Negative) mg/dL Urine Blood (Negative) Urine Nitrite (Negative) Urine Bilirubin (Negative) Urine Urobilinogen (<2.0) mg/dL Ur Leukocyte Esterase (Negative) Urine WBC (Auto) (0.0-6.0) /HPF Urine RBC (Auto) (0.0-6.0) /HPF U Epithel Cells (Auto) (0-13.0) /HPF 05/02/21 05/02/21 Range/Units 12:17 14:30 WBC (4.5-11.0) K/mm3 RBC (3.65-5.03) M/mm3 Hgb (10.1-14.3) gm/dl Hct (30.3-42.9) % MCV (79-97) fl MCH (28-32) pg MCHC (30-34) % RDW (13.2-15.2) % Plt Count (140-440) K/mm3 Lymph % (Auto) (13.4-35.0) % [place] % (Auto) (0.0-7.3) % Eos % (Auto) (0.0-4.3) % Baso % (Auto) (0.0-1.8) % Lymph # (Auto) (1.2-5.4) K/mm3 [place] # (Auto) (0.0-0.8) K/mm3 Eos # (Auto) (0.0-0.4) K/mm3 Baso # (Auto) (0.0-0.1) K/mm3 Seg Neutrophils % (40.0-70.0) % Seg Neutrophils # (1.8-7.7) K/mm3 PT (12.2-14.9) Sec. INR (0.87-1.13) APTT (24.2-36.6) Sec. D-Dimer (0-234) ng/mlDDU Sodium (137-145) mmol/L Potassium (3.6-5.0) mmol/L Chloride (98-107) mmol/L Carbon Dioxide (22-30) mmol/L Anion Gap mmol/L BUN (7-17) mg/dL Creatinine (0.6-1.2) mg/dL Estimated GFR ml/min BUN/Creatinine Ratio % Glucose (65-100) mg/dL Calcium (8.4-10.2) mg/dL Total Bilirubin (0.1-1.2) mg/dL AST (5-40) units/L ALT (7-56) units/L Alkaline Phosphatase (35-129) units/L Troponin T < 0.010 (0.00-0.029) ng/mL Total Protein (6.3-8.2) g/dL Albumin (3.9-5) g/dL Albumin/Globulin Ratio % Urine Color Yellow (Yellow) Urine Turbidity Clear (Clear) Urine pH 5.0 (5.0-7.0) Ur Specific [place] 1.009 (1.003-1.030) Urine Protein <15 mg/dl (Negative) mg/dL Urine Glucose (UA) Neg (Negative) mg/dL Urine Ketones Neg (Negative) mg/dL Urine Blood Neg (Negative) Urine Nitrite Neg (Negative) Urine Bilirubin Neg (Negative) Urine Urobilinogen < 2.0 (<2.0) mg/dL Ur Leukocyte Esterase Neg (Negative) Urine WBC (Auto) < 1.0 (0.0-6.0) /HPF Urine RBC (Auto) 3.0 (0.0-6.0) /HPF U Epithel Cells (Auto) < 1.0 (0-13.0) /HPF - EKG Data -: EKG Interpreted by Mi EKG shows normal: sinus rhythm, axis, intervals, QRS complexes, ST-T waves Rate: normal - EKG Data When compared to previous EKG there are: no significant change Interpretation: unchanged when compared t (04/26/20) - Radiology Data Radiology results: image reviewed interpreted by me: Chest x-ray does not show any acute process. There are no pleural effusions, obvious pneumonia and there is no pneumothorax. No widened mediastinum. - Medical Decision Making This patient presents to the emergency department with a complaint of some intermittent palpitations and intermittent generalized chest pressure has been going on over the past 2 days. On examination the patient's heart and lung sounds are normal to auscultation. She does not appear in any respiratory or acute distress. EKG is normal. There is no morphology consistent with ST elevation myocardial infarction, signs of ischemia, or any dysrhythmia. Chest x-ray does not show any pneumonia, pleural effusions, pneumothorax, widened mediastinum, or any other acute process. The patient's labs are mostly unremarkable including CBC, metabolic panel, negative troponins x2, and a negative D-dimer. Patient does have a slightly elevated AST, but the patient also admits to some daily alcohol consumption without a history of dependence. Vital signs have been reassuring throughout her ED course including being afebrile. She has been monitored and reevaluated multiple times over multiple hours and has been stable throughout her ED course. The patient has a low heart and MICHAEL score. For all these reasons the patient appears safe for discharge home at this time. We discussed the elevated LFT levels and she understands that she should avoid alcohol consumption and also avoid Tylenol/acetaminophen intake. She has been given an outpatient referral for gastroenterology. Patient's contact information has been sent over to the [facility], and someone from their office should be contacting her shortly for close outpatient follow-up as part of our [facility] low risk chest pain protocol. The patient has been given 2 different primary care referrals, for a private physician and a primary care clinic. She will return to the emergency department with any worsening of her symptoms or with any acute distress. Critical Care Time: No Critical care attestation.: If time is entered above; I have spent that time in minutes in the direct care of this critically ill patient, excluding procedure time. ED Disposition Clinical Impression: Palpitations, Intermittent chest pain, Elevated liver enzymes Disposition: TO HOME OR SELFCARE Is pt being admited?: No Condition: Stable Instructions: Nonspecific Chest Pain, Adult, Palpitations Additional Instructions: Please follow-up with a primary care physician in the next few days. I have given you a referral for a local primary care physician, Dr. Mcdonough, and a primary care clinic, [facility]. I am sending your contact information over to the [facility], and someone from their office should be contacting you shortly for close outpatient follow-up. Just in case, I am giving you a referral for one of their smt machine operator, Dr. Leal. Please try to avoid any excessive caffeine intake. Try to get 8 hours of uni nterrupted sleep at night. One of your liver enzymes came back elevated. Because of this, please avoid any alcohol use or any Tylenol/acetaminophen intake. I have given you a referral for [facility] to follow-up regarding this. Return to the emergency department with any worsening of your symptoms, new or concerning symptoms not addressed during this current emergency department visit, or with any acute distress. Referrals: [facility] [Provider Group] - 2-3 Days LEYLA MCDONOUGH MD [Staff Physician] - 2-3 Days PRIMARY MD EVANS [Primary Care Provider] - 2-3 Days BRET LEAL MD [Staff Physician] - 2-3 Days [facility] [Provider Group] - 3-5 Days Time of Disposition: 15:11
[2021-05-02 12:26] LABS: Basophils % (Auto) 0.6 % (0.0-1.8); Eosinophils # (Auto) 0.1 K/mm3 (0.0-0.4); Eosinophils % (Auto) 0.8 % (0.0-4.3); Hematocrit 39.5 % (30.3-42.9); Hemoglobin 13.5 gm/dl (10.1-14.3); Lymphocytes # (Auto) 1.9 K/mm3 (1.2-5.4); Lymphocytes % (Auto) 30.4 % (13.4-35.0); Mean Corpuscular HGB Conc 34 % (30-34); Mean Corpuscular Volume 99 fl (79-97); Monocytes # (Auto) 0.7 K/mm3 (0.0-0.8); Monocytes % (Auto) 11.7 % (0.0-7.3); Platelet Count 135 K/mm3 (140-440); Red Blood Count 3.98 M/mm3 (3.65-5.03); Red Cell Distribution Width 13.9 % (13.2-15.2)
[2021-05-02 12:33] LABS: INR 1.16 (0.87-1.13); Partial Thromboplastin Time 38.3 Sec. (24.2-36.6)
[2021-05-02 12:41] LABS: Alanine Aminotransferase 46 units/L (7-56); Albumin 4.1 g/dL (3.9-5); Blood Urea Nitrogen 13 mg/dL (7-17); Calcium 8.7 mg/dL (8.4-10.2); Hemolysis Index 24
[2021-05-02 12:50] LABS: BUN/Creatinine Ratio 22
[2021-05-02 12:55] LABS: Bilirubin,Urine NEG (Negative); Blood,Urine NEG (Negative); Color,Urine Yellow (Yellow); Protein,Urine <15 mg/dL mg/dL (Negative); Urobilinogen,Urine < 2.0 mg/dL (<2.0)
[2021-05-02 12:58] LABS: WBC,Urine < 1.0 /HPF (0.0-6.0)
[2021-05-02 16:05] VITALS: BP 124/88
--- NOTE | 2021-05-02 18:07 | Electrocardiograph Report ---
[facility] Test Date: 2021-05-02 Test Time: 10:03:59 Pat Name: SEAMUS BRADSHAW Department: Room: Gender: F Unit Aid: KRISTY : 1960 Requested By: FÁTIMA MAGAÑA Order Number: [id number] Reading MD: Sommer Arias Measurements Intervals [place] Rate: 98 P: 78 W[place]: 143 QRS: 81 QRSD: 85 T: 58 QT: 340 QTc: 435 Interpretive Statements Sinus rhythm Biatrial enlargement No previous ECG available for comparison Electronically Signed On 05-02-2021 18:06:59 EDT by Sommer Arias
== END 2021-05-02 16:05 | disposition home or self-care (01) ==
LOC: ED 09:51
DX: R00.2 Palpitations (principal); R07.89 Other chest pain; R94.5 Abnormal results of liver function studies; M19.90 Unspecified osteoarthritis, unspecified site; F32.9 Major depressive disorder, single episode, unspecified; Z98.890 Other specified postprocedural states; Z90.89 Acquired absence of other organs; Z79.899 Other long term (current) drug therapy
CPT/HCPCS: 36415; 71046; 80053; 81001; 84484; 85025; 85379; 85610; 85730; 93005; 99284

== ENCOUNTER 2021-05-07 21:02 | Emergency (ER) | payer SELFPAY ==
[2021-05-07 22:05] VITALS: BP 140/94
--- NOTE | 2021-05-07 22:53 | XRay Report ---
Sacrum and coccyx 3views Indication: Fall COMPARISON: CT scan dated 12/03/2020 Findings: There is no fracture or subluxation of the sacrum or coccyx. The alignment of the sacrum and coccyx a ppears unchanged from prior CT scan from November. Signer Name: Live Bishop MD Signed: 05/07/2021 10:49 PM Workstation Name: [id number]
--- NOTE | 2021-05-08 00:34 | Emergency Department Report ---
ED General Adult HPI - General Chief complaint: Back Pain/Injury Stated complaint: SLIP AND FALL, KNEE AND BACK INJURY Time Seen by Provider: 05/08/21 00:22 Source: patient Mode of arrival: Ambulatory Limitations: No Limitations - History of Present Illness Initial comments: 61-year-old female patient presents to the emergency department with complaints of traumatic low back pain starting 4 days ago. Patient states she accidentally slipped and fell from ground-level while [place]. There was no head injury or loss of consciousness. Patient has been ambulatory without assistance since the fall. No history of prior back surgeries. She has been taking Tylenol and Motrin with limited relief. Denies headache, neck pain, paresthesias, numbness, weakness, saddle anesthesia, bladder/bowel incontinence, urinary retention. Denies all other complaints at this time. - Related Data Previous Rx's Medication Instructions Recorded Last Taken Type HYDROcodone/APAP 5-325 [Freeman 1 each PO Q6HR PRN #20 tablet 05/17/14 Unknown Rx 5/325] Ibuprofen [Motrin] 800 mg PO TID #60 tablet 05/17/14 Unknown Rx methylPREDNISolone [Medrol Dose 4 mg PO DAILY 6 Days tab 05/17/14 Unknown Rx Anthony] Diclofenac Dr [Voltaren Dr] 75 mg PO Q12H #60 tablet 06/24/15 Unknown Rx HYDROcodone/APAP 7.5-325 [Freeman 1 each PO Q8HR PRN #30 tablet 06/24/15 Unknown Rx 7.5/325] Ondansetron [Zofran Odt] 4 mg PO Q6HR PRN #20 tab.rapdis 05/02/19 Unknown Rx raNITIdine HCl [Zantac] 150 mg PO Q12H #30 tablet 05/02/19 Unknown Rx amLODIPine [Norvasc] 5 mg PO DAILY #30 tab 08/03/19 Unknown Rx labetaloL [Labetalol 100mg TAB] 100 mg PO BID #60 tablet 04/26/20 Unknown Rx Ondansetron [Zofran Odt] 4 mg PO Q8HR PRN #14 tab.rapdis 12/03/20 Unknown Rx Lidocaine [Lidoderm] 1 each TP BID #20 adh..patch 05/08/21 Unknown Rx Naproxen 500 mg PO BID #20 tablet 05/08/21 Unknown Rx Allergies Allergy/AdvReac Type Severity Reaction Status Date / Time No Known Allergies Allergy Verified 05/02/19 20:01 ED Review of Systems ROS: Stated complaint: SLIP AND FALL, KNEE AND BACK INJURY Other details as noted in HPI Other: GENERAL: Negative for fever. CARDIOVASCULAR: Negative for chest pain. PULMONARY: Negative for shortness of breath. GASTROINTESTINAL: Negative for abdominal pain. MUSCULOSKELETAL: Positive for back pain. NEUROLOGICAL: Negative for headache. INTEGUMENTARY: Negative for rash. ED Past Medical Hx - Past Medical History Previous Medical History?: Yes Hx Heart Attack/AMI: Yes Hx Arthritis: Yes (osteo, chronic back pain) Hx Psychiatric Treatment: Yes (depression) Additional medical history: MS 2008, MS 2017 - Surgical History Past Surgical History?: Yes Additional Surgical History: Hysto, tumor removal off left shoulder. tosill ectomy. - Social History Smoking Status: Never Smoker Substance Use Type: None - Medications Home Medications: Home Medications Medication Instructions Recorded Confirmed Last Taken Type HYDROcodone/APAP 5-325 [Freeman 1 each PO Q6HR PRN #20 tablet 05/17/14 Unknown Rx 5/325] Ibuprofen [Motrin] 800 mg PO TID #60 tablet 05/17/14 Unknown Rx methylPREDNISolone [Medrol Dose 4 mg PO DAILY 6 Days tab 05/17/14 Unknown Rx Anthony] Diclofenac Dr [Onelia Dr] 75 mg PO Q12H #60 tablet 06/24/15 Unknown Rx HYDROcodone/APAP 7.5-325 [Freeman 1 each PO Q8HR PRN #30 tablet 06/24/15 Unknown Rx 7.5/325] Ondansetron [Zofran Odt] 4 mg PO Q6HR PRN #20 tab.rapdis 05/02/19 Unknown Rx raNITIdine HCl [Zantac] 150 mg PO Q12H #30 tablet 05/02/19 Unknown Rx amLODIPine [Norvasc] 5 mg PO DAILY #30 tab 08/03/19 Unknown Rx labetaloL [Labetalol 100mg TAB] 100 mg PO BID #60 tablet 04/26/20 Unknown Rx Ondansetron [Zofran Odt] 4 mg PO Q8HR PRN #14 tab.rapdis 12/03/20 Unknown Rx Lidocaine [Lidoderm] 1 each TP BID #20 adh..patch 05/08/21 Unknown Rx Naproxen 500 mg PO BID #20 tablet 05/08/21 Unknown Rx ED Physical Exam - General Limitations: No Limitations - Other Other exam information: General: Awake, appropriately interactive, no acute distress. Neck: Supple. Full range of motion intact. Cardiovascular: Normal peripheral perfusion. Pulmonary: No respiratory distress. Patient is speaking normally without use of accessory muscles. Skin: No apparent rashes or lesions. Neurological: No facial asymmetry. Speech is clear. Follows commands. Patient is alert and oriented. Musculoskeletal: Lower lumbar tenderness without step-offs. No saddle anesthesia. Moves all four extremities spontaneously with normal range of motion. Strength and sensation intact throughout. Ambulatory without assistance. Psych: Cooperative. Appropriate mood and affect. ED Course Vital Signs 05/07/21 22:03 Temperature 97.9 F Pulse Rate 96 H Respiratory 16 Rate Blood Pressure 140/94 O2 Sat by Pulse 99 Oximetry ED Medical Decision Making - Medical Decision Making Differential diagnosis including but not limited to: sprain, strain, fracture, contusion, dislocation, disc herniation, cauda equina syndrome Patient presents to the emergency department with complaints of traumatic low back pain status post mechanical fall 4 days ago. X-rays ordered by fresh work inspector prior to MSE within normal limits. History and exam findings consistent with contusion. The patients back pain is not associated with numbness, tingling, or loss of strength. There is no acute urinary incontinence or retention and no bowel incontinence or retention. There is no saddle anesthesia. The patient is afebrile and neurovascularly intact. No clinical evidence for spinal cord injury or vertebral fracture. It has been explained to the patient that advanced imaging such as CT or MRI is not indicated at this time but should be considered if symptoms recur or worsen. Discharged home with appropriate prescriptions and instructions to follow up with primary care provider. Strict return precautions provided. Emphasized the importance of outpatient follow-up and specific signs/symptoms that should warrant immediate return to the emergency department. Patient expressed understanding and was given the opportunity to ask questions, all of which were satisfactorily answered prior to discharge home. Critical care attestation.: If time is entered above; I have spent that time in minutes in the direct care of this critically ill patient, excluding procedure time. ED Disposition Clinical Impression: Back contusion Qualifiers: Encounter type: initial encounter Laterality: unspecified laterality Qualified Code(s): S20.229A - Contusion of unspecified back wall of thorax, initial encounter Disposition: DC-01 TO HOME OR SELFCARE Is pt being admited?: No Does the pt Need Aspirin: No Condition: Stable Instructions: Contusion, [id number] Additional Instructions: Take Tylenol every 4 hours as needed for pain. Take Naprosyn twice daily with food as needed for pain. Apply Lidoderm patches to affected area as needed for pain. Apply ice to affected area as needed for pain. Gradually advance physical activity slowly as tolerated. Follow-up with primary care provider this week. Call tomorrow to schedule appointment. See referral information below. Return to the emergency department immediately for new or worsening symptoms. Prescriptions: Lidocaine [Lidoderm] 1 each TP BID #20 adh..patch Naproxen 500 mg PO BID #20 tablet Referrals: LEYLA HURTADO MD [Staff Physician] - 3-[address] [facility] [Provider Group] - 3-5 Days Forms: Work/School Release Form(ED) Time of Disposition: 00:35
== END 2021-05-08 01:10 | disposition home or self-care (01) ==
LOC: ED 21:02
DX: S30.0XXA Contusion of lower back and pelvis, initial encounter (principal); F32.9 Major depressive disorder, single episode, unspecified; I25.2 Old myocardial infarction; M19.90 Unspecified osteoarthritis, unspecified site; Z98.890 Other specified postprocedural states; Z79.899 Other long term (current) drug therapy; W18.39XA Other fall on same level, initial encounter; Y93.89 Activity, other specified; Y92.831 Amusement park as the place of occurrence of the external cause; Y99.8 Other external cause status
CPT/HCPCS: 72220

== ENCOUNTER 2022-01-27 09:03 | Emergency (ER) | payer SELFPAY ==
[2022-01-27] MEDS ORDERED: KETOROLAC 10 MG TAB PO ONE (11:12)
[2022-01-27] MEDS ORDERED: oxyCODONE /ACETAMINOPHEN 5-325MG TAB PO ONE (11:12)
[2022-01-27] MEDS ORDERED: ONDANSETRON 4 MG ODT TAB PO ONE (11:16)
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
[2022-01-27 13:17] VITALS: BP 131/89
== END 2022-01-27 13:17 | disposition home or self-care (01) ==
LOC: ED 09:03
DX: M25.552 Pain in left hip (principal); M54.50 Low back pain, unspecified; Y08.89XA Assault by other specified means, initial encounter; Y93.89 Activity, other specified; Y92.89 Other specified places as the place of occurrence of the external cause; Y99.8 Other external cause status
CPT/HCPCS: 72100; 99283; J3490; Q0162

== ENCOUNTER 2022-05-16 03:04 | Emergency (ER) | payer SELFPAY | END 2022-05-16 04:01 | disposition left against medical advice (07) | LOC: ED 03:04 | DX: M54.9 Dorsalgia, unspecified (principal); Z53.21 Procedure and treatment not carried out due to patient leaving prior to being seen by health care provider ==